=== PATIENT | female | born 1980 | race Caucasian/White ===

== ENCOUNTER 2019-11-27 08:10 | Emergency (ER) | payer MEDICAID, OTHER ==
[~2019-11-27] VITALS: Ht 148.6 cm; Wt 83.1 kg
[2019-11-27 08:11] VITALS: BP 136/78
--- NOTE | 2019-11-27 08:19 | NUR ---
amb steady gait to bed 3 Addendum: 11/27/19 at 0820 by GLORIA bed 2
--- NOTE | 2019-11-27 08:25 | NUR ---
39/F C/O NAUSEA, RIGHT FLANK/LOW BACK PAIN X LAST NIGHT. DENIES LOWER URINARY TRACT SYMPTOMS OR FEVER. NO LOSS OF BOWEL/BLADDER CONTROL. ALSO HAS SEPARATE COMPLAINT OF MID LUMBAR BACK/COCCYX PAIN RADIATING TO BILATERAL LEGS (R>L) S/P TC 6 WEEKS AGO. SUSTAINED LUMBAR(?) FX AT UNKNOWN LEVEL FROM TC. TOOK TYLENOL AT 5 AM TODAY. MED HX: BACK FX NKA
--- NOTE | 2019-11-27 08:37 | NUR ---
DR SHELBY EVALUATING PT AT BEDSIDE
--- NOTE | 2019-11-27 08:55 | NUR ---
TO XRAY VIA W/C
--- NOTE | 2019-11-27 09:04 | NUR ---
URINE SAMPLE DROPPED OFF AT LAB
[2019-11-27] MEDS ORDERED: KETOROLAC 30 MG/ML VIAL IM ONE (09:30)
[2019-11-27 10:34] LABS: APPEARANCE,URINE CLEAR (CLEAR); BILIRUBIN,URINE NEGATIVE (NEGATIVE); BLOOD, URINE NEGATIVE (NEGATIVE); COLOR,URINE YELLOW (YELLOW); LEUKOCYTE ESTERASE ,URINE NEGATIVE (NEGATIVE); NITRITE, URINE NEGATIVE (NEGATIVE); UGLUCOSE NEGATIVE (NEGATIVE)
--- NOTE | 2019-11-27 11:17 | NUR ---
DR SHELBY AT BEDSIDE DISCUSSING D/C WITH PATIENT
--- NOTE | 2019-11-27 11:20 | NUR ---
Patient discharged with v/s stable. Written and verbal after care instructions given and explained. Patient alert, oriented and verbalized understanding of instructions. Ambulatory with steady gait. All questions addressed prior to discharge. ID band removed. Patient advised to follow up with PMD. Rx of IBUPROFEN AND NORCO given. Patient educated on indication of medication including possible reaction and side effects. Opportunity to ask questions provided and answered.
--- NOTE | 2019-11-27 11:29 | NUR ---
Julio villanueva in [facility] - 11/27/19 at 1130 by GLORIA MATTHIEU [phone]
--- NOTE | 2019-11-27 11:29 | NUR ---
MATTHIEU [phone]
[2019-11-27 11:55] VITALS: BP 126/85
== END 2019-11-27 11:20 | disposition home or self-care (01) ==
LOC: MED 08:10
DX: G89.21 Chronic pain due to trauma (principal); M54.9 Dorsalgia, unspecified; Z87.81 Personal history of (healed) traumatic fracture
CPT/HCPCS: 72072; 72110; 81001; 81003; 81025; 96372; 99284; J1885

== ENCOUNTER 2020-07-30 21:16 | Emergency (ER) | payer SELFPAY ==
[~2020-07-30] VITALS: Ht 149.9 cm; Wt 76.2 kg
[2020-07-30 21:24] VITALS: BP 130/72
--- NOTE | 2020-07-30 21:32 | NUR ---
PT IS A 40 Y.O. FEMALE BIB SELF W/ CC OF ABDOMINAL PAIN, NAUSEA, AND CONSTIPATION. PT STATES THE PAIN AT A SCALE OF 7/10 THAT IS "RATTLING AND SHARP", RADIATING TO THE BACK. PT STATES SHE HAD A GASTRIC SLEEVE IN APRIL 2019 WITH TITANIUM CHANDRIKA PLACED. A&OX4, RESPONDING APPROPRIATELY. NO RESPIRATORY DISTRESS NOTED. PT DENIES ANY OTHER SURGERIES OR PMH. PT DENIES ANY ALLERGIES TO MEDICATION.
[2020-07-30] MEDS ORDERED: ONDANSETRON 4 MG/2 ML VIAL IVP ONE (22:10)
--- NOTE | 2020-07-30 22:35 | NUR ---
IV INSERTED ON FIRST ATTEMPT. IV IS PLACED IN THE RIGHT AC 20 GAUGE. FLUSHING AND PATENT.
--- NOTE | 2020-07-30 22:35 | NUR ---
CALLED RADIOLOGY DEPARTMENT AND THEY SAID THEY ARE WAITIING FOR LAB TO BE READY AND WILL BE DOWN TO [employer] MECHANICAL THE PT.
[2020-07-30 22:39] LABS: BASOPHILS % (AUTO) 0.3 % (0.0-2.0); EOSINOPHILS % (AUTO) 0.5 % (0.0-4.0); HEMOGLOBIN 10.4 g/dL (12.0-16.0); LYMPHOCYTES # (AUTO) 1.4 K/uL (2.5-16.5); LYMPHOCYTES % (AUTO) 26.8 % (20.5-51.1); MEAN CORPUSCULAR HEMOGLOBIN 26 pg (27-31); MEAN CORPUSCULAR HGB CONC 32 g/dL (33-37); MEAN CORPUSCULAR VOLUME 78.6 fL (80-94); MONOCYTES # (AUTO) 0.7 K/uL (0.8-1.0); MONOCYTES % (AUTO) 13.9 % (1.7-9.3); NEUTROPHILS % (AUTO) 58.5 % (42.2-75.2); PLATELET COUNT (AUTO) 238 K/uL (140-450); RED BLOOD CELL COUNT(AUTO) 4.07 MIL/uL (4.20-5.40); RED CELL DISTRIBUTION WIDTH 14.1 % (11.6-13.7); WHITE BLOOD COUNT (AUTO) 5.2 K/uL (4.8-10.8)
[2020-07-30 22:58] LABS: ALBUMIN 3.4 g/dL (3.4-5.0); ANION GAP 10.4 (8-16); CARBON DIOXIDE 28.5 mmol/L (21-32); CREATININE 0.5 mg/dL (0.6-1.3); POTASSIUM 3.9 mmol/L (3.5-5.1); TOTAL BILIRUBIN 0.3 mg/dL (0.0-1.0)
--- NOTE | 2020-07-30 23:15 | NUR ---
PT TAKEN TO CT VIA WHEELCHAIR
--- NOTE | 2020-07-30 23:28 | NUR ---
PT IS BACK FROM CT SCAN. AMBULATED TO THE BED. STEADY GAIT.
--- NOTE | 2020-07-31 00:18 | NUR ---
PT IS ASLEEP. NO DISTRESS NOTED. BREATHING IS UNLABORED. NO APPARENT SIGNS OF PAIN.
--- NOTE | 2020-07-31 00:43 | NUR ---
Patient discharged with v/s stable. Written and verbal after care instructions given and explained. Patient verbalized understanding. Ambulatory with steady gait. All questions addressed prior to discharge. Advised to follow up with PMD. IV REMOVED AND BLEEDING CONTROLLED.
[2020-07-31 00:44] VITALS: BP 130/72
== END 2020-07-31 00:44 | disposition home or self-care (01) ==
LOC: MED 21:16
DX: K59.00 Constipation, unspecified (principal); R10.10 Upper abdominal pain, unspecified; Z79.899 Other long term (current) drug therapy
CPT/HCPCS: 36415; 74177; 80053; 81002; 81025; 83690; 85025; 96374; 99285; J2405; Q9967

== ENCOUNTER 2021-01-01 19:39 | Emergency (ER) | payer MEDICAID ==
[~2021-01-01] VITALS: Ht 149.9 cm; Wt 77.1 kg
[2021-01-01 19:56] VITALS: BP 124/75
[2021-01-01] MEDS ORDERED: KETOROLAC 15 MG/ML VIAL IVP ONE (21:10)
[2021-01-01] MEDS ORDERED: NACL 0.9% 1,000 ML IV ONE (21:10)
[2021-01-01] MEDS ORDERED: cefTRIAXone 1,000 MG VIAL ONE (22:05)
[2021-01-01 22:16] LABS: APPEARANCE,URINE CLOUDY (CLEAR); BILIRUBIN,URINE NEGATIVE (NEGATIVE); BLOOD, URINE 1+ (NEGATIVE); COLOR,URINE YELLOW (YELLOW); LEUKOCYTE ESTERASE ,URINE 3+ (NEGATIVE); NITRITE, URINE NEGATIVE (NEGATIVE); UGLUCOSE NEGATIVE (NEGATIVE)
[2021-01-01 22:37] LABS: ALBUMIN 3.4 g/dL (3.4-5.0); ANION GAP 18.3 (8-16); CARBON DIOXIDE 21.1 mmol/L (21-32); CREATININE 0.7 mg/dL (0.6-1.3); POTASSIUM 3.4 mmol/L (3.5-5.1); TOTAL BILIRUBIN 0.3 mg/dL (0.0-1.0)
[2021-01-01 22:42] LABS: RBC,URINE 0-5 /HPF (0-5); WBC,URINE TOO MANY TO COUNT /HPF (0-5)
[2021-01-02] MEDS ORDERED: cefTRIAXone 1,000 MG VIAL ONE (01:51)
[2021-01-02] MEDS ORDERED: KETOROLAC 15 MG/ML VIAL IVP ONE (02:20)
[2021-01-02 02:27] LABS: BASOPHILS % (AUTO) 0.2 % (0.0-2.0); EOSINOPHILS % (AUTO) 0.2 % (0.0-4.0); HEMATOCRIT 30.3 % (36-48); HEMOGLOBIN 9.5 g/dL (12.0-16.0); LYMPHOCYTES # (AUTO) 0.8 K/uL (2.5-16.5); LYMPHOCYTES % (AUTO) 8.6 % (20.5-51.1); MEAN CORPUSCULAR HEMOGLOBIN 24 pg (27-31); MEAN CORPUSCULAR HGB CONC 31 g/dL (33-37); MEAN CORPUSCULAR VOLUME 76.3 fL (80-94); MONOCYTES # (AUTO) 0.5 K/uL (0.8-1.0); MONOCYTES % (AUTO) 5.9 % (1.7-9.3); NEUTROPHILS # (AUTO) 7.6 K/uL (1.8-7.7); PLATELET COUNT (AUTO) 209 K/uL (140-450); RED BLOOD CELL COUNT(AUTO) 3.97 MIL/uL (4.20-5.40); RED CELL DISTRIBUTION WIDTH 16.8 % (11.6-13.7)
[2021-01-02 02:41] LABS: WHITE BLOOD COUNT (AUTO) 8.9 K/uL (4.8-10.8)
[2021-01-02 02:42] LABS: NEUTROPHILS % (AUTO) 85.1 % (42.2-75.2)
[2021-01-02] MEDS ORDERED: ACETAMINOPHEN EXTRA STRENGTH 500 MG TAB PO ONE (05:35)
[2021-01-02] MEDS ORDERED: NACL 0.9% 1,000 ML IV ONE (05:35)
[2021-01-02] MEDS ORDERED: SULF-58 PO ×2 (06:53→07:02)
[2021-01-02 07:04] VITALS: BP 131/89
== END 2021-01-02 07:04 | disposition home or self-care (01) ==
LOC: MED 19:39
DX: N12 Tubulo-interstitial nephritis, not specified as acute or chronic (principal); Z98.890 Other specified postprocedural states; Z79.2 Long term (current) use of antibiotics
CPT/HCPCS: 36415; 80053; 81001; 83690; 85025; 87086; 96361; 96365; 96366; 96375; 96376; 99285; J0696; J1885; J7030

== ENCOUNTER 2022-02-18 12:19 | Emergency (ER) | payer MEDICAID, OTHER ==
[~2022-02-18] VITALS: Ht 149.9 cm; Wt 77.1 kg
[~2022-02-18 12:19] MED LIST: SULF-58 PO
[2022-02-18 12:33] VITALS: BP 112/50
--- NOTE | 2022-02-18 12:51 | NUR ---
41 Y/O FEMALE BIB SELF C/O SPOTTING, PER PT SHE IS 7 WEEKS , LMP DEC 26, DENIES ANY DISCHARGE, BACK PAIN OR ABD CRAMPING. G1, 2 CHILDREN WITH SURROGATE NKA PMH: PCOS
[2022-02-18 14:00] LABS: BASOPHILS # (AUTO) 0.1 K/uL (0.00-0.22); BASOPHILS % (AUTO) 0.9 % (0.0-2.0); EOSINOPHILS # (AUTO) 0.1 K/uL (0-0.4); EOSINOPHILS % (AUTO) 1.7 % (0.0-4.0); HEMATOCRIT 27.7 % (36-48); HEMOGLOBIN 8.5 g/dL (12.0-16.0); LYMPHOCYTES # (AUTO) 2.1 K/uL (2.5-16.5); LYMPHOCYTES % (AUTO) 30.1 % (20.5-51.1); MEAN CORPUSCULAR HEMOGLOBIN 18 pg (27-31); MEAN CORPUSCULAR HGB CONC 31 g/dL (33-37); MEAN CORPUSCULAR VOLUME 60.4 fL (80-94); MONOCYTES # (AUTO) 0.6 K/uL (0.8-1.0); MONOCYTES % (AUTO) 8.3 % (1.7-9.3); NEUTROPHILS # (AUTO) 4.2 K/uL (1.8-7.7); PLATELET COUNT (AUTO) 400 K/uL (140-450); RED BLOOD CELL COUNT(AUTO) 4.59 MIL/uL (4.20-5.40); RED CELL DISTRIBUTION WIDTH 19.1 % (11.6-13.7); WHITE BLOOD COUNT (AUTO) 7.1 K/uL (4.8-10.8)
[2022-02-18 14:03] LABS: ALBUMIN 3.6 g/dL (3.4-5.0); ANION GAP 11.4 (8-16); CARBON DIOXIDE 25.7 mmol/L (21-32); CREATININE 0.7 mg/dL (0.6-1.3); POTASSIUM 4.1 mmol/L (3.5-5.1); TOTAL BILIRUBIN 0.2 mg/dL (0.0-1.0)
--- NOTE | 2022-02-18 15:15 | NUR ---
Patient discharged with v/s stable. Written and verbal after care instructions ABOUT THREATENED MISCARRIAGE given and explained. Patient verbalized understanding. Ambulatory with steady gait. All questions addressed prior to discharge. Advised to follow up with PMD.
== END 2022-02-18 15:15 | disposition home or self-care (01) ==
LOC: MED 12:19
DX: O20.0 Threatened abortion (principal); Z3A.01 Less than 8 weeks gestation of pregnancy; Z79.899 Other long term (current) drug therapy
CPT/HCPCS: 36415; 76801; 80053; 81025; 84702; 85025; 86886; 86900; 86901; 99284; Q0092

== ENCOUNTER 2022-02-24 08:54 | Emergency (ER) | payer OTHER ==
[~2022-02-24] VITALS: Ht 149.9 cm; Wt 75.7 kg
[2022-02-24 09:02] VITALS: BP 119/58
--- NOTE | 2022-02-24 09:08 | NUR ---
Patient ambulated to bed 4.
--- NOTE | 2022-02-24 09:24 | NUR ---
Lab at bedside.
--- NOTE | 2022-02-24 09:26 | NUR ---
Dr. Mireles evaluating patient at bedside.
[2022-02-24 09:48] LABS: APPEARANCE,URINE SL CLOUDY (CLEAR); BILIRUBIN,URINE NEGATIVE (NEGATIVE); BLOOD, URINE 3+ (NEGATIVE); COLOR,URINE AMBER (YELLOW); LEUKOCYTE ESTERASE ,URINE 1+ (NEGATIVE); NITRITE, URINE NEGATIVE (NEGATIVE); UGLUCOSE NEGATIVE (NEGATIVE)
--- NOTE | 2022-02-24 09:51 | NUR ---
41 y/o female bib self with c/o vaginal bleeding and cramping. Patient was seen here and at [facility] for same symtptoms. Patient was diagnosed with threatened miscarriage at both prior hospital visits. Patient has increased cramping and bleeding. Denies any nausea, vomiting or diarrhea. [id number] Medical History: PCOS, Incompetent Cervix, Anemia NKDA
[2022-02-24 10:00] LABS: BASOPHILS % (AUTO) 0.6 % (0.0-2.0); EOSINOPHILS # (AUTO) 0.1 K/uL (0-0.4); EOSINOPHILS % (AUTO) 1.6 % (0.0-4.0); HEMATOCRIT 26.1 % (36-48); HEMOGLOBIN 7.7 g/dL (12.0-16.0); LYMPHOCYTES # (AUTO) 1.5 K/uL (2.5-16.5); MEAN CORPUSCULAR HEMOGLOBIN 18 pg (27-31); MEAN CORPUSCULAR HGB CONC 30 g/dL (33-37); MEAN CORPUSCULAR VOLUME 61.2 fL (80-94); MONOCYTES # (AUTO) 0.4 K/uL (0.8-1.0); MONOCYTES % (AUTO) 7.5 % (1.7-9.3); NEUTROPHILS # (AUTO) 3.1 K/uL (1.8-7.7); NEUTROPHILS % (AUTO) 61.3 % (42.2-75.2); PLATELET COUNT (AUTO) 382 K/uL (140-450); RED BLOOD CELL COUNT(AUTO) 4.27 MIL/uL (4.20-5.40); RED CELL DISTRIBUTION WIDTH 20.1 % (11.6-13.7); WHITE BLOOD COUNT (AUTO) 5.1 K/uL (4.8-10.8)
[2022-02-24 10:02] LABS: ANION GAP 10.7 (8-16); CARBON DIOXIDE 24.3 mmol/L (21-32); CREATININE 0.7 mg/dL (0.6-1.3)
[2022-02-24 10:04] LABS: RBC,URINE 20-50 /HPF (0-5)
[2022-02-24 10:05] LABS: OTHER CASTS, URINE None Seen /LPF (None Seen)
--- NOTE | 2022-02-24 10:23 | NUR ---
Dr. Mireles re-evaluating patient at bedside.
[2022-02-24 10:52] VITALS: BP 104/73
--- NOTE | 2022-02-24 10:52 | NUR ---
Patient discharged with v/s stable. Written and verbal after care instructions given. Patient verbalized understanding. Ambulatory with steady gait. All questions addressed prior to discharge. Advised to follow up with PMD.
--- NOTE | 2022-02-24 10:53 | NUR ---
The patient's care was reviewed and supervised by Ana Augustin RN.
== END 2022-02-24 10:52 | disposition home or self-care (01) ==
LOC: MED 08:54
DX: O46.91 Antepartum hemorrhage, unspecified, first trimester (principal); Z3A.01 Less than 8 weeks gestation of pregnancy
CPT/HCPCS: 36415; 80048; 81001; 81025; 84702; 85025; 99283